=== PATIENT | male | born 1990 | race Caucasian/White ===

== ENCOUNTER 2019-02-26 21:31 | Emergency (ER) | payer OTHER ==
[~2019-02-26] VITALS: Ht 177.8 cm; Wt 76.4 kg
[2019-02-26 23:02] VITALS: BP 111/67
[2019-02-26] MEDS ORDERED: acetaminophen 325mg tablet PO ONE (23:45)
[2019-02-26] MEDS ORDERED: TETanus/Pertussis (Acell)/Diphther VAC/PF (Tdap-Adult) 0.5ml syringe IM ONE (23:50)
[2019-02-26] MEDS ORDERED: bacitracin 15gm ointment TP ONE (23:50)
== END 2019-02-27 00:29 | disposition home or self-care (01) ==
LOC: ER 21:32
DX: S80.12XA Contusion of left lower leg, initial encounter (principal); S90.811A Abrasion, right foot, initial encounter; S80.212A Abrasion, left knee, initial encounter; W23.0XXA Caught, crushed, jammed, or pinched between moving objects, initial encounter; Y93.89 Activity, other specified; Y92.828 Other wilderness area as the place of occurrence of the external cause; Y99.8 Other external cause status
CPT/HCPCS: 73630; 90471; 99283